=== PATIENT | female | born 1955 | race African-American/Black ===

== ENCOUNTER 2021-03-20 10:09 | Emergency (ER) | payer SELFPAY ==
[2021-03-20 10:24] VITALS: BP 165/99; PULSE 85; TEMP 97.9; BMI 31.3
== END 2021-03-20 12:14 | disposition home or self-care (01) ==
LOC: JER 10:09 → JCOVINFU 10:09 → JER 12:14
DX: J06.9 Acute upper respiratory infection, unspecified (principal); Z76.0 Encounter for issue of repeat prescription
CPT/HCPCS: 99282-25; C9803; U0003; U0005